=== PATIENT | female | born 1995 | race African-American/Black ===

== ENCOUNTER 2022-03-08 22:25 | Emergency (ER) | payer SELFPAY ==
--- NOTE | 2022-03-08 23:05 | ER ---
Nurse's Notes [facility] Name: Deanne Cason Age: 26 yrs Sex: Female : 1995 Arrival Date: 03/08/2022 Time: 22:27 Bed Waiting Private MD: Diagnosis: Encounter for examination of blood pressure Presentation: 03/08 22:55 Chief complaint: Patient states: "I really just need my blood pressure checked. At home as6 and it was high. I think it was just my machine". Coronavirus screen: At this time, the client does not indicate any symptoms associated with coronavirus-19. Ebola Screen: No symptoms or risks identified at this time. Initial Sepsis Screen: Does the patient meet any 2 criteria? No. Patient's initial sepsis screen is negative. Does the patient have a suspected source of infection? No. Patient's initial sepsis screen is negative. Risk Assessment: Do you want to hurt yourself or someone else? Patient reports no desire to harm self or others. Onset of symptoms was March 08, 2022. 22:55 Method Of Arrival: Ambulatory as6 22:55 Acuity: KOURTNEY 5 as6 Triage Assessment: 22:59 General: Appears in no apparent distress. Behavior is calm, cooperative. Pain: as6 Complains of pain in head Quality of pain is described as aching. Historical: - Allergies: 22:58 No Known Allergies; as6 - Home Meds: 22:58 None [Active]; as6 - PMHx: 22:58 None; as6 - PSHx: 22:58 None; as6 - Immunization history:: Client reports receiving the 2nd dose of the Covid vaccine, [employer]. - Social history:: Smoking status: Reported history of juuling and/or vaping. Screenin:01 Abuse screen: Denies threats or abuse. Denies injuries from another. Nutritional as6 screening: No deficits noted. Tuberculosis screening: No symptoms or risk factors identified. Fall Risk None identified. Vital Signs: 22:55 BP 125 / 91; Pulse 84; Resp 18 S; Temp 98.2(O); Pulse Ox 100% on R/A; Weight 95.25 kg as6 (M); Height 5 ft. 3 in. (160.02 cm) (M); Pain 2/10; 22:55 Body Mass Index 37.20 (95.25 kg, 160.02 cm) as6 ED Course: 22:27 Patient arrived in ED. dt4 :58 Triage completed. as6 :59 Arm band placed on. as6 23: Mario Tejeda PA is PHCP. cp 23: Mraio Priest MD is Attending Physician. cp 23:01 Patient has correct armband on for positive identification. as6 23:01 No provider procedures requiring assistance completed. Patient did not have IV access as6 during this emergency room visit. Administered Medications: No medications were administered Medication: 23:01 VIS not applicable for this client. as6 Outcome: 23:05 Discharge ordered by . cp 23:09 Discharged to home ambulatory. as6 23:09 Condition: stable 23:09 Discharge instructions given to patient, Instructed on discharge instructions, follow up and referral plans. Demonstrated understanding of instructions, follow-up care. 23:09 Patient left the ED. as6 Signatures: Mario Tejeda PA PA cp Charly Padron RN RN as6 Amie Flores dt4 Corrections: (The following items were deleted from the chart) :59 22:58 Allergies: Aspirin; as6 as6
--- NOTE | 2022-03-08 23:05 | EDPHYS ---
Physician Documentation [facility] Name: Deanne Cason Age: 26 yrs Sex: Female : 1995 Arrival Date: 03/08/2022 Time: 22:27 Bed Waiting Private MD: ED Physician Mario Priest HPI: 03/08 23:05 This 26 yrs old Black Female presents to ER via Ambulatory with complaints of High cp Blood Pressure. 23:05 The patient has elevated blood pressure and discovered this at home, with a home cp device, wrist cuff. Onset: The symptoms/episode began/occurred today. Associated signs and symptoms: The patient has no apparent associated signs or symptoms. Severity of symptoms: At its worst the blood pressure was systolic pressure in 160's, in the emergency department the blood pressure is improved, markedly. Historical: - Allergies: 22:58 No Known Allergies; as6 - Home Meds: 22:58 None [Active]; as6 - PMHx: 22:58 None; as6 - PSHx: 22:58 None; as6 - Immunization history:: Client reports receiving the 2nd dose of the Covid vaccine, [employer]. - Social history:: Smoking status: Reported history of juuling and/or vaping. ROS: 23:05 Eyes: Negative for injury, pain, redness, and discharge. cp 23:05 Constitutional: Negative for body aches, chills, fever, poor PO intake. 23:05 ENT: Negative for drainage from ear(s), ear pain, sore throat, difficulty swallowing, difficulty handling secretions. 23:05 Cardiovascular: Negative for chest pain, palpitations. 23:05 Respiratory: Negative for cough, shortness of breath, wheezing. 23:05 Abdomen/GI: Negative for abdominal pain, nausea, vomiting, and diarrhea. 23:05 Neuro: Negative for altered mental status, dizziness, headache, weakness. 23:05 All other systems are negative. Exam: 23:05 Head/Face: Normocephalic, atraumatic. cp 23:05 Constitutional: The patient appears in no acute distress, alert, awake, comfortable, non-diaphoretic, non-toxic, well developed, well nourished. 23:05 Eyes: Periorbital structures: appear normal, Conjunctiva: normal, no exudate, no injection, Sclera: no appreciated abnormality, Lids and lashes: appear normal, bilaterally. 23:05 Chest/axilla: Inspection: normal. 23:05 Cardiovascular: Rate: normal, Rhythm: regular. 23:05 Respiratory: the patient does not display signs of respiratory distress, Respirations: normal, no use of accessory muscles, no retractions, labored breathing, is not present, Breath sounds: are clear throughout, no decreased breath sounds, no stridor, no wheezing. 23:05 Abdomen/GI: Exam negative for discomfort, distension, guarding, Inspection: abdomen appears normal. 23:05 Neuro: Orientation: to person, place \T\ time. Mentation: is normal, Cerebellar function: is grossly normal, Motor: moves all fours, strength is normal, Sensation: is normal. Vital Signs: 22:55 BP 125 / 91; Pulse 84; Resp 18 S; Temp 98.2(O); Pulse Ox 100% on R/A; Weight 95.25 kg as6 (M); Height 5 ft. 3 in. (160.02 cm) (M); Pain 2/10; 22:55 Body Mass Index 37.20 (95.25 kg, 160.02 cm) as6 MDM: 23:05 Patient medically screened. cp 23:05 Data reviewed: vital signs, nurses notes. cp 23:05 Counseling: I had a detailed discussion with the patient and/or guardian regarding: the cp historical points, exam findings, and any diagnostic results supporting the discharge/admit diagnosis, the need for outpatient follow up, a family practitioner, to return to the emergency department if symptoms worsen or persist or if there are any questions or concerns that arise at home. ED course: VSS. Recommend continued monitoring and f/u with primary physician. Administered Medications: No medications were administered Disposition Summary: 03/08/22 23:05 Discharge Ordered Location: Home cp Problem: new cp Symptoms: have improved cp Condition: Stable cp Diagnosis - Encounter for examination of blood pressure cp Followup: cp - With: Private Physician - When: 1 - 2 days - Reason: Recheck today's complaints Discharge Instructions: - Discharge Summary Sheet cp - Form - Blood Pressure Record Sheet cp - How to Take Your Blood Pressure cp Forms: - Medication Reconciliation Form cp - Thank You Letter cp - Antibiotic Education cp - Prescription Opioid Use cp Signatures: Mario Tejeda PA PA cp Slawson, Ashby, RN RN as6 Corrections: (The following items were deleted from the chart) 22:59 22:58 Allergies: Aspirin; as6 as6 03/09 22:36 03/08 23:10 Severity of symptoms: At its worst the blood pressure was 163 mm Hg, cp cp 03/09 22:37 03/08 23:10 This 26 yrs old Black Female presents to ER via Ambulatory with complaints cp of High Blood Pressure. cp 03/09 22:37 03/08 23:10 The patient has elevated blood pressure and discovered this at home, with a cp home device, wrist cuff, cp 03/09 22:37 03/08 23:10 Onset: The symptoms/episode began/occurred today, cp cp 03/09 22:37 03/08 23:10 Associated signs and symptoms: The patient has no apparent associated signs cp or symptoms, cp 03/09 22:37 03/08 23:10 Severity of symptoms: At its worst the blood pressure was systolic pressure cp in 160's, in the emergency department the blood pressure is improved, markedly, cp
[2022-03-08 23:18] VITALS: BP 125/91; TEMP 98.2; O2SAT 100
== END 2022-03-08 23:09 | disposition home or self-care (01) ==
LOC: ER 22:25
DX: I10 Essential (primary) hypertension (principal); Z01.30 Encounter for examination of blood pressure without abnormal findings
CPT/HCPCS: 99281